=== PATIENT | female | born 1980 | race Caucasian/White ===

== ENCOUNTER → 2018-02-01 | Outpatient (CLI) | payer BC ==
[~2018-02-01] MED LIST: NS 100 ML IV 100 ML IV ONE
[2018-02-01 08:55] LABS: CREATININE 1.23 mg/dL (0.55-1.02)
--- NOTE | 2018-02-01 09:57 | CT ---
HISTORY: Right upper quadrant pain. Prior history of hysterectomy, cholecystectomy and bladder surger y. Study: CT abdomen and pelvis with IV and oral contrast Comparison: No priors Technique: Multiple axial images of the abdomen and pelvis were obtained from the lung bases to the pubic symphy sis during the administration of IV contrast. Small amount of oral contrast was apparently given als o. Coronal and sagittal images are reviewed. Dose reduction techniques utilized automatic exposure co ntrol. Findings: The visualized portions of the lung bases are unremarkable. The liver, spleen, pancreas, kidneys, an d adrenal glands are unremarkable in their CT appearance. The gallbladder and uterus are surgically a bsent.. No significant mesenteric lymphadenopathy or stranding can be observed. No free fluid or fr ee air is seen within the abdomen. No bowel wall thickening or bowel dilatation is present. The appe ndix is normal. The colon is unremarkable. Specifically, there is no diverticulosis noted within the sigmoid colon. The right ovary is normal. There is a 2.1 cm simple cyst of the left ovary. The urina ry bladder is grossly unremarkable. The bony structures are grossly intact. IMPRESSION: Surgically absent gallbladder and uterus. 2.1 cm simple cyst of the left ovary. Right ovary is normal. No evidence of renal mass, stone or hydronephrosis is seen. Normal appendix. Reported By:
== END | disposition home or self-care (01) | DRG 392 ==
LOC: RAD 08:16
PROVIDERS: ATTEND Nurse Practitioner Family
DX: R10.11 Right upper quadrant pain (principal); R10.31 Right lower quadrant pain; R11.0 Nausea; N83.292 Other ovarian cyst, left side
CPT/HCPCS: 36415; 74177; 82565; 84520; A4222

== ENCOUNTER 2022-10-05 16:51 | Observation (INO) ==
--- NOTE | 2022-10-05 17:10 | ED.ABDFE ---
HPI Time Seen Time Seen by Provider: 10/05/22 17:09 PCP Primary Care Physician: FAHAD LOZADA Complaint Doctors Chief Complaint Comments: 42 y/o female presents for evaluation. Developed abdominal pain this am. Located LUQ, does not radiate. Crampy, sharp. Nothing makes it better, nothing makes it worse. Denies URI symptoms, bowel or bladder issues. Associated with nausea, but no vomiting. No report of fever, chills, diaphoresis, rash. Has had distant abdominal surgeries - turner, hyst, C- sec. Chief Complaint:: PT STATES THAT SHE WOKE UP THIS MORNING WITH SEVERE LUQ PAIN DESCRIBED CONSTANT SPAMS/CRAMPING. PAIN IS ASSOCIATED WITH NAUSEA BUT DENIES VOMITING. PT HAS HAD NORMAL BM TODAY. Self Treatment fo Chief Complaint: PT TOOK TYLENOL LAST AROUND NOON WITH NO IMPROVEMENT OF SYMPTOM COVID-19 Coronavirus risk:travel/contact w/high risk person: No Has patient experienced Coronavirus symptoms: No Reviewed Nurses Notes Review: Yes Source History Provided: Patient Mode of arrival Mode of Arrival: Ambulatory Timing Onset of Chief Complaint: 10/05/22 PMH PMH Past Medical History: Yes Past Medical History: Anxiety, Diabetes, Dyslipidemia, GERD and Hypertension Past Medical History Comment: IBS, INSOMIA, TONGUE CANCER Past Surgical History: Yes Surgical History: , Cholecystectomy and Hysterectomy Past Surgical History Comment: TONGUE SURGERY, BLADDER TACT Family History History of Family Medical Conditions: Yes Family Medical History: Cancer Social History Does patient currently use any type of tobacco product: No Have you used tobacco products in the last 12 months: No Type of Tobacco Use: None Does any household member use tobacco: No Alcohol Use: None Do you use any recreational Drugs:: No Lives With: Family Lives Where: Home Travel Risk Coronavirus risk:travel/contact w/high risk person: No Has patient experienced Coronavirus symptoms: No Infectious screening In the last 2 months have you had wt loss of >10#?: NO Have you had fever, night sweats or hemotysis?: No Have you traveled outside the country in the last 6 months?: No Isolation: Standard ROS Review of Systems Constitutional: No Symptoms Reported Eyes: No Symptoms Reported ENTM: No Symptoms Reported Respiratoy: No Symptoms Reported Cardiovascular: No Symptoms Reported Gastrointestinal/Abdominal: See HPI Genitourinary: No Symptoms Reported Neurological: No Symptoms Reported Musculoskeletal: No Symptoms Reported Integumentary: No Symptoms Reported Hematologic/Lymphatic: No Symptoms Reported Psychiatric: No Symptoms Reported All Other Systems: Reviewed and Negative PE Vital Signs Vitals: Temperature 97.6 F Pulse Rate 77 Respiratory Rate 17 Blood Pressure 115/55 O2 Sat by Pulse Oximetry 100 General General Appearance: Alert and In No Apparent Distress Eyes Eye exam: PERRL and EOMI ENT ENT Exam: Mucous Membranes Moist Neck Neck Exam: Normal Inspection and Full ROM Respiratory Respiratory Exam: Normal Lung Sounds Bilat; negative Accessory Muscle Use or Respiratory Distress Cardiovascular Cardiovascular Exam: Regular Rate, Normal Rhythm and Normal Heart Sounds Abdominal Exam Abdominal Exam: Normal Inspection, Normal Bowel Sounds, Soft and Tenderness (LUQ, mild guarding, no rebound. ) Back Back Exam: Normal Inspection; negative (R) CVA Tenderness or (L) CVA Tenderness Extremeties Extremities Exam: Normal Inspection and Full ROM; negative Edema Neurologic Neurological Exam: Alert, Oriented X3 and CN II-XII Intact; negative Motor Sensory Deficit Skin Skin Exam: Warm and Dry COURSE Treatment Treatment: + LUQ abdominal pain since this am. W/u initiated. Given IV fluids, IV toradol/zofran. 1907 - blood work acceptable. U/A with degree of a UTI. CT abd/pelvis - + partial SBO, loops in the LUQ. Pt informed of results. Recommend admission. Discussed with Dr Beckford, covering for admissions, accepts the admission. Will consult with Dr Watkins. [facility] Labs Reviewed Laboratory Results Reviewed?: Yes Result Diagrams: 10/05/22 17:26 10/05/22 17: Laboratory: WBC 7.7 X10^3/uL (3.6-10.0) 10/05/22 17: RBC 4.12 X10^6/uL (3.5-5.4) 10/05/22 17: Hgb 11.9 g/dL (12.0-16.0) L 10/05/22 17: Hct 35.9 % (36.0-47.0) L 10/05/22 17: MCV 87.0 fL (80.0-100.0) 10/05/22 17: MCH 28.8 pg (27.0-34.0) 10/05/22 17: MCHC 33.1 g/dL (33.0-35.0) 10/05/22 17: RDW 13.8 % (11.6-16.5) 10/05/22 17: Plt Count 324 X10^3/uL (150.0-450.0) 10/05/22 17: MPV 9.0 fL (7.4-11.0) 10/05/22 17: Neut % (Auto) 82.2 % (42.0-75.0) H 10/05/22 17: Lymph % (Auto) 13.2 % (21.0-51.0) L 10/05/22 17: [place] % (Auto) 3.4 % (0.0-13.0) 10/05/22 17: Eos % (Auto) 0.4 % (0.9-2.9) L 10/05/22: Baso % (Auto) 0.8 % (0.2-1.0) 10/05/22 17: Neut # (Auto) 6.3 x10^3/uL (2.2-4.8) H 10/05/22 17: Lymph # (Auto) 1.0 X10^3/uL (1.3-2.9) L 10/05/22 17: [place] # (Auto) 0.3 x10^3/uL (0.3-0.8) 10/05/22 17: Eos # (Auto) 0.0 x10^3/uL (0.0-0.2) 10/05/22: Baso # (Auto) 0.1 X10^3/uL (0.0-0.1) 10/05/22 17: Absolute Nucleated RBC 0.0 /100WBC 10/05/22 17: Sodium 137 mmol/L (136-145) 10/05/22 17: Corrected Sodium 138 mmol/L (136-145) 10/05/22 17: Potassium 3.9 mmol/L (3.5-5.1) 10/05/22 17: Chloride 103 mmol/L (98-107) 10/05/22 17: Carbon Dioxide 28.4 mmol/L (21-32) 10/05/22 17: BUN 11 mg/dL (7-18) 10/05/22 17: Creatinine 1.27 mg/dL (0.55-1.02) H 10/05/22 17:26 Est GFR (MDRD) Af Amer 59 (>60) 10/05/22 17:26 Est GFR (MDRD) Non-Af 49 (>60) L 10/05/22 17: Glucose 131 mg/dL (65-99) H 10/05/22 17:26 Calcium 8.8 mg/dL (8.5-10.1) 10/05/22 17: Corrected Calcium 9.4 mg/dL (8.5-10.1) 10/05/22 17: Total Bilirubin 0.20 mg/dL (0.2-1.0) 10/05/22 17: AST 41 Units/L (15-37) H 10/05/22 17: ALT 51 Units/L (12-78) 10/05/22 17: Alkaline Phosphatase 36 Units/L (46-116) L 10/05/22 17:26 Total Protein 6.5 g/dL (6.4-8.2) 10/05/22 17: Albumin 3.3 g/dL (3.4-5.0) L 10/05/22 17:26 Globulin 3.2 g/dL (2.5-4.5) 10/05/22 17: Albumin/Globulin Ratio 1.0 Ratio (1.1-2.1) L 10/05/22 17: Lipase 105 Units/L (73-393) 10/05/22 17:26 Specimen Type Clean catch urine 10/05/22 17:36 Urine Color Yellow (YELLOW) 10/05/22 17:36 Urine Appearance Cloudy (CLEAR) 10/05/22 17:36 Urine pH 5.0 (5.0 - 8.0) 10/05/22 17:36 Ur Specific [place] 1.020 (1.000-1.030) 10/05/22 17:36 Urine Protein 2+ (NEGATIVE) 10/05/22 17:36 Urine Glucose (UA) Negative (NEGATIVE) 10/05/22 17:36 Urine Ketones 1+ (NEGATIVE) 10/05/22 17: Urine Blood 1+ (NEGATIVE) 10/05/22 17:36 Urine Nitrite Positive (NEGATIVE) 10/05/22 17:36 Urine Bilirubin Negative (NEGATIVE) 10/05/22 17:36 Urine Urobilinogen Normal (NORMAL) 10/05/22 17:36 Ur Leukocyte Esterase 3+ (NEGATIVE) 10/05/22 17:36 Urine RBC 3-5 /HPF (0-3) A 10/05/22 17:36 Urine WBC 10-20 /HPF (0-5) A 10/05/22 17:36 Ur Squamous Epith Cells Many /HPF (NEGATIVE) 10/05/22 17:36 Urine Bacteria 3+ /HPF (NEGATIVE) 10/05/22 17:36 Ur Culture Indicated? No/not indicated 10/05/22 17:36 XRAY XRAY Interpreted by: Radiologist X-ray Results: + dilated loops small bowel in LUQ, c/w partial SBO Opioid Opioid Risk Tool Age (Srini box if 16-45): Yes History of Preadolescent Sexual Abuse: No Total: 1 Total Score Risk Category: Low Risk Copyright: Tj LINK predicting aberrant behaviors Discharge Plan Diagnosis Discharge Problem: Partial small bowel obstruction Discharge Plan Patient Disposition: 09 ADMITTED INPATIENT Condition: Stable Prescriptions: No Action atorvastatin 20 mg tablet 20 mg PO QDAY bisoprolol-hydrochlorothiazide 5-6.25 mg tablet 1 tab PO QDAY amitriptyline 50 mg tablet 150 mg PO HS pantoprazole 40 mg tablet,delayed release (DR/EC) 40 mg PO BID ergocalciferol (vitamin D2) 1,250 mcg (50,000 unit) capsule 50,000 unit PO QWEEK pioglitazone 30 mg tablet 30 mg PO QDAY losartan 100 mg tablet 100 mg PO QDAY metformin 500 mg tablet extended release 24 hr 500 mg PO BID dicyclomine 10 mg capsule 10 mg PO TID escitalopram oxalate 10 mg tablet 10 mg PO QDAY fenofibrate 160 mg tablet 160 mg PO QDAY Health Concerns: Post Hospitalization: new medications and changes needed to prevent readmission or further decline. Pt educated and given instructions on all concerns. Plan of Treatment: Continue with present treatment and follow up plan. Pt is to keep follow up appointment as instructed and take medications as ordered. Orders to Discharge Patient Discharge Orders: Transfer (Routine); Ordered 10/05/22 Ordered By: Luis Syed Follow ups/Referrals Follow ups/Referrals: RUDI MURRAY [Primary Care Provider] - 3 days
[2022-10-05] MEDS ORDERED: NS 1,000 ML IV 1,000 ML IV ONE (17:18)
[2022-10-05] MEDS ORDERED: ZOFRAN INJ 4 MG VIAL IVP ONE (17:19)
[2022-10-05] MEDS ORDERED: TORADOL 30 MG VIAL IVP ONE (17:19)
[2022-10-05] MEDS ORDERED: ZOFRAN INJ 4 MG VIAL ONE (17:35)
[2022-10-05] MEDS ORDERED: TORADOL 30 MG VIAL ONE (17:35)
[2022-10-05] MEDS ORDERED: NS 1,000 ML IV 1,000 ML ONE ×2 (17:36→19:22)
[2022-10-05 17:41] LABS: BASOPHILS # (AUTO) 0.1 X10^3/uL (0.0-0.1); BASOPHILS % (AUTO) 0.8 % (0.2-1.0); EOSINOPHILS % (AUTO) 0.4 % (0.9-2.9); HEMATOCRIT 35.9 % (36.0-47.0); HEMOGLOBIN 11.9 g/dL (12.0-16.0); LYMPHOCYTES % (AUTO) 13.2 % (21.0-51.0); MEAN CORPUSCULAR HEMOGLOBIN 28.8 pg (27.0-34.0); MEAN CORPUSCULAR HGB CONC 33.1 g/dL (33.0-35.0); MONOCYTES # (AUTO) 0.3 x10^3/uL (0.3-0.8); MONOCYTES % (AUTO) 3.4 % (0.0-13.0); NEUTROPHILS # (AUTO) 6.3 x10^3/uL (2.2-4.8); NEUTROPHILS % (AUTO) 82.2 % (42.0-75.0); RED BLOOD COUNT 4.12 X10^6/uL (3.5-5.4); RED CELL DISTRIBUTION WIDTH 13.8 % (11.6-16.5); WHITE BLOOD COUNT 7.7 X10^3/uL (3.6-10.0)
[2022-10-05 17:51] LABS: ALBUMIN 3.3 g/dL (3.4-5.0); CALCIUM 8.8 mg/dL (8.5-10.1); CARBON DIOXIDE 28.4 mmol/L (21-32); COR CA(FOR HYPOALB) 9.4 mg/dL (8.5-10.1); CREATININE 1.27 mg/dL (0.55-1.02); TOTAL PROTEIN 6.5 g/dL (6.4-8.2)
[2022-10-05 17:59] LABS: BILIRUBIN,URINE NEGATIVE (NEGATIVE); BLOOD/HEMOGLOBIN,URINE 1+ (NEGATIVE); GLUCOSE, URINE NEGATIVE (NEGATIVE); KETONES,URINE 1+ (NEGATIVE); LEUKOCYTE ESTERASE ,URINE 3+ (NEGATIVE); NITRITES,URINE POSITIVE (NEGATIVE); PROTEIN,URINE 2+ (NEGATIVE); UROBILINOGEN,URINE NORMAL (NORMAL)
[2022-10-05 18:11] LABS: APPEARANCE,URINE CLOUDY (CLEAR); COLOR,URINE YELLOW (YELLOW)
[2022-10-05 18:12] LABS: BACTERIA,URINE 3+ /HPF (NEGATIVE); SQUAMOUS EPITHELIAL CELL,UR MANY /HPF (NEGATIVE)
--- NOTE | 2022-10-05 18:42 | CT ---
HISTORY:Left upper quadrant pain, nauseaStudy: CT abdomen and pelvis with contrastComparison:NoneTechnique: Multiple axial images of the abdomen and pelvis were obtained with IV contrast. Oral contrast was not administered. Dose reduction techniques including Automated Exposure Control (AEC) and adjustment of mA and kV were utilized.FINDINGS:The lung bases are clear. There is probable fatty infiltration of the liver. The spleen, pancreas and adrenal glands are unremarkable. Gallbladder is removed.No renal calculi or obstructive uropathy.No free intraperitoneal air. There are mildly dilated small bowel loops in the left upper quadrant with air-fluid levels, measuring up to 3.5 centimeters in diameter. There is mild fecalization of small bowel contents suggesting stasis. Distal small bowel loops are decompressed and there is gas in the colon. Overall findings suggest partial small-bowel obstruction versus ileus. Continued follow-up is recommended. The appendix is normal. No ascites or abscess.The soft tissues and osseous structures are intact . The vascular structures are unremarkable . No pathologically enlarged lymph nodes are identified.Uterus is absent. Urinary bladder not well distended.IMPRESSION ABDOMEN/PELVIS:Mildly dilated small bowel loops with air-fluid levels in the left upper quadrant with relative transition to decompressed small bowel loops. Findings suggest partial small-bowel obstruction versus ileus. Continued radiographic follow-up is recommended.Surgical changes as described.Electronically signed by: VIVIANA GATICA (Oct 05, 2022 18:40:30)
[2022-10-05] MEDS ORDERED: MORPHINE SULFATE INJ 4 MG IVP ONE (19:09)
[2022-10-05] MEDS ORDERED: ROCEPHIN VIAL 1 GRAM 1 G in NS 100 ML IV 100 ML IV SCH (19:10)
[2022-10-05] MEDS ORDERED: MORPHINE SULFATE INJ 4 MG ONE (19:17)
[2022-10-05] MEDS ORDERED: ROCEPHIN VIAL 1 GRAM ONE (19:17)
[2022-10-05] MEDS ORDERED: NS 1,000 ML IV 1,000 ML IV SCH (20:00)
[2022-10-05] MEDS ORDERED: MORPHINE SULFATE INJ 4 MG IVP PRN (20:46)
[2022-10-05] MEDS ORDERED: D5 1/2 NS 1,000 ML 1,000 ML IV SCH (20:46)
[2022-10-05] MEDS ORDERED: ZOFRAN INJ 4 MG VIAL IVP PRN (20:46)
[2022-10-05] MEDS ORDERED: ELAVIL PO SCH (21:00)
[2022-10-05 21:21] VITALS: BMI 40.3
[2022-10-05] MEDS: NS 1,000 ML IV 1,000 ML IV SCH (22:34)
[2022-10-06] MEDS: NS 1,000 ML IV 1,000 ML IV SCH ×2 (04:05→04:06)
[2022-10-06 06:17] LABS: BASOPHILS % (AUTO) 0.5 % (0.2-1.0); EOSINOPHILS # (AUTO) 0.1 x10^3/uL (0.0-0.2); EOSINOPHILS % (AUTO) 0.6 % (0.9-2.9); HEMATOCRIT 34.4 % (36.0-47.0); HEMOGLOBIN 11.3 g/dL (12.0-16.0); LYMPHOCYTES # (AUTO) 1.3 X10^3/uL (1.3-2.9); LYMPHOCYTES % (AUTO) 14.9 % (21.0-51.0); MEAN CORPUSCULAR HEMOGLOBIN 28.9 pg (27.0-34.0); MEAN CORPUSCULAR HGB CONC 32.8 g/dL (33.0-35.0); MEAN CORPUSCULAR VOLUME 87.9 fL (80.0-100.0); MEAN PLATELET VOLUME 9.1 fL (7.4-11.0); MONOCYTES # (AUTO) 0.5 x10^3/uL (0.3-0.8); MONOCYTES % (AUTO) 5.4 % (0.0-13.0); NEUTROPHILS % (AUTO) 78.6 % (42.0-75.0); RED BLOOD COUNT 3.91 X10^6/uL (3.5-5.4); WHITE BLOOD COUNT 8.9 X10^3/uL (3.6-10.0)
[2022-10-06 06:24] LABS: ALANINE AMINOTRANSFERASE 39 Units/L (12-78); ALBUMIN 2.6 g/dL (3.4-5.0); ALKALINE PHOSPHATASE 31 Units/L (46-116); ASPARTATE AMINO TRANSFERASE 28 Units/L (15-37); BLOOD UREA NITROGEN 11 mg/dL (7-18); CHLORIDE 108 mmol/L (98-107); COR CA(FOR HYPOALB) 9.1 mg/dL (8.5-10.1); COR NA(FOR HYPERGLY) 141 mmol/L (136-145); CREATININE 1.08 mg/dL (0.55-1.02); SODIUM 141 mmol/L (136-145); TOTAL PROTEIN 5.4 g/dL (6.4-8.2); eGFR NON BLACK RACES 59 (>60)
[2022-10-06] MEDS ORDERED: MAGNESIUM SULFATE 1 GRAM/100 mL PREMIX 1 G/100 ML BAG IV PRN (06:32)
[2022-10-06] MEDS ORDERED: K-DUR TAB 20 MEQ PO PRN (06:32)
[2022-10-06] MEDS ORDERED: KLOR-CON PO PRN (06:32)
[2022-10-06] MEDS ORDERED: POTASSIUM CHL 40 MEQ/NS 0.45% 500 ML IV PRN (06:32)
[2022-10-06] MEDS ORDERED: MICRO K EXTEN CAP 10 MEQ PO PRN (06:32)
[2022-10-06] MEDS ORDERED: K-RIDER 10 MEQ/NS 100 ML 10 MEQ/100 ML BAG IV PRN (06:32)
[2022-10-06] MEDS ORDERED: POTASSIUM CHLORIDE LIQ 20 MEQ UDC PO PRN (06:32)
[2022-10-06] MEDS ORDERED: POTASSIUM CHL 60 MEQ/NS 0.45% 500 ML IV PRN (06:32)
[2022-10-06] MEDS ORDERED: ZIAC 5/6.25 MG PO SCH (09:00)
[2022-10-06] MEDS ORDERED: COZAAR PO SCH (09:00)
[2022-10-06 12:15] VITALS: BP 101/53
--- NOTE | 2022-10-06 12:38 | RAD ---
HISTORYSBOSTUDYKUB x-ray one viewCOMPARISONCT 10/05/2022FINDINGSMild air is seen in the colon with little if any small bowel air. Prior cholecystectomy. No suspicious calcifications.IMPRESSIONNo bowel dilation is seen.Electronically signed by: Tim Ghosh (Oct 06, 2022 12:37:56)
--- NOTE | 2022-10-06 13:27 | DR.SSS ---
SHORT STAY SUMMARY Admission Date Date of Admission: 10/05/22 Discharge Date Discharge Date: 10/06/22 Admission Diagnoses Admission Diagnoses: Abdominal pain Nausea Discharge Diagnoses Discharge Diagnoses: Abdominal pain Nausea Chief Complaint Chief Complaint: Abdominal pain Nausea Past Medical History Past Medical History: Anxiety, Diabetes, Dyslipidemia, GERD and Hypertension Past Surgical History Surgical History: , Cholecystectomy and Hysterectomy Allergies Allergies Allergy/AdvReac Type Severity Reaction Status Date / Time No Known Drug Allergies Allergy Unknown Verified 03/19/20 16:11 metoclopramide [From Reglan] Allergy Verified 04/17/19 07:44 Medications Home Medications: metoclopramide [From Reglan] Allergy (Verified 04/17/19 07:44) CONTINUE taking the following medications amitriptyline 50 mg tablet 150 mg PO HS 10/05/22 [History] atorvastatin 20 mg tablet 20 mg PO QDAY 10/05/22 [History] bisoprolol 5 mg-hydrochlorothiazide 6.25 mg tablet 1 tab PO QDAY 10/05/22 [History] dicyclomine 10 mg capsule 10 mg PO TID 10/05/22 [History] ergocalciferol (vitamin D2) 1,250 mcg (50,000 unit) capsule 50,000 unit PO QWEEK 10/05/22 [History] escitalopram oxalate 10 mg tablet 10 mg PO QDAY 10/05/22 [History] fenofibrate 160 mg tablet 160 mg PO QDAY 10/05/22 [History] losartan 100 mg tablet 100 mg PO QDAY 10/05/22 [History] metformin 500 mg tablet,extended release 24 hr 500 mg PO BID 10/05/22 [History] pantoprazole 40 mg tablet,delayed release 40 mg PO BID 10/05/22 [History] pioglitazone 30 mg tablet 30 mg PO QDAY 10/05/22 [History] zolpidem 10 mg tablet 1 tab PO QPM PRN 10/05/22 [History] Family History Family Medical History: Cancer Social History Does patient currently use any type of tobacco product: No Have you used tobacco products in the last 12 months: No Type of Tobacco Use: None Does any household member use tobacco: No Alcohol Use: None Drug Use: None Physical Exam Vital Signs: Last Vital Signs Temp 97.9 F 10/06/22 12:00 Pulse 74 10/06/22 12:00 Resp 18 10/06/22 12:00 BP 101/53 10/06/22 12:00 Pulse Ox 94 L 10/06/22 12:00 O2 Del Method Room Air 10/06/22 12:00 Labs Labs: Laboratory Last Values WBC 8.9 X10^3/uL (3.6-10.0) 10/06/22 05:44 RBC 3.91 X10^6/uL (3.5-5.4) 10/06/22 05:44 Hgb 11.3 g/dL (12.0-16.0) L 10/06/22 05:44 Hct 34.4 % (36.0-47.0) L 10/06/22 05:44 MCV 87.9 fL (80.0-100.0) 10/06/22 05:44 MCH 28.9 pg (27.0-34.0) 10/06/22 05:44 MCHC 32.8 g/dL (33.0-35.0) L 10/06/22 05:44 RDW 14.0 % (11.6-16.5) 10/06/22 05:44 Plt Count 292 X10^3/uL (150.0-450.0) 10/06/22 05:44 MPV 9.1 fL (7.4-11.0) 10/06/22 05:44 Neut % (Auto) 78.6 % (42.0-75.0) H 10/06/22 05:44 Lymph % (Auto) 14.9 % (21.0-51.0) L 10/06/22 05:44 [place] % (Auto) 5.4 % (0.0-13.0) 10/06/22 05:44 Eos % (Auto) 0.6 % (0.9-2.9) L 10/06/22 05:44 Baso % (Auto) 0.5 % (0.2-1.0) 10/06/22 05:44 Neut # (Auto) 7.0 x10^3/uL (2.2-4.8) H 10/06/22 05:44 Lymph # (Auto) 1.3 X10^3/uL (1.3-2.9) 10/06/22 05:44 [place] # (Auto) 0.5 x10^3/uL (0.3-0.8) 10/06/22 05:44 Eos # (Auto) 0.1 x10^3/uL (0.0-0.2) 10/06/22 05:44 Baso # (Auto) 0.0 X10^3/uL (0.0-0.1) 10/06/22 05:44 Absolute Nucleated RBC 0.1 /100WBC 10/06/22 05:44 Sodium 141 mmol/L (136-145) 10/06/22 05:44 Corrected Sodium 141 mmol/L (136-145) 10/06/22 05:44 Potassium 3.7 mmol/L (3.5-5.1) 10/06/22 12:14 Chloride 108 mmol/L (98-107) H 10/06/22 05:44 Carbon Dioxide 27.0 mmol/L (21-32) 10/06/22 05:44 BUN 11 mg/dL (7-18) 10/06/22 05:44 Creatinine 1.08 mg/dL (0.55-1.02) H 10/06/22 05:44 Est GFR (MDRD) Af Amer > 60 (>60) 10/06/22 05:44 Est GFR (MDRD) Non-Af 59 (>60) 10/06/22 05:44 Glucose 115 mg/dL (65-99) H 10/06/22 05:44 POC Glucose (mg/dL) 149 mg/dL (65-99) H 10/06/22 12:23 Calcium 8.0 mg/dL (8.5-10.1) L 10/06/22 05:44 Corrected Calcium 9.1 mg/dL (8.5-10.1) 10/06/22 05:44 Total Bilirubin 0.20 mg/dL (0.2-1.0) 10/06/22 05:44 AST 28 Units/L (15-37) 10/06/22 05:44 ALT 39 Units/L (12-78) 10/06/22 05:44 Alkaline Phosphatase 31 Units/L (46-116) L 10/06/22 05:44 Total Protein 5.4 g/dL (6.4-8.2) L 10/06/22 05:44 Albumin 2.6 g/dL (3.4-5.0) L 10/06/22 05:44 Globulin 2.8 g/dL (2.5-4.5) 10/06/22 05:44 Albumin/Globulin Ratio 0.9 Ratio (1.1-2.1) L 10/06/22 05:44 Lipase 105 Units/L (73-393) 10/05/22 17:26 Specimen Type Clean catch urine 10/05/22 17:36 Urine Color Yellow (YELLOW) 10/05/22 17:36 Urine Appearance Cloudy (CLEAR) 10/05/22 17:36 Urine pH 5.0 (5.0 - 8.0) 10/05/22 17:36 Ur Specific [place] 1.020 (1.000-1.030) 10/05/22 17:36 Urine Protein 2+ (NEGATIVE) 10/05/22 17:36 Urine Glucose (UA) Negative (NEGATIVE) 10/05/22 17:36 Urine Ketones 1+ (NEGATIVE) 10/05/22 17:36 Urine Blood 1+ (NEGATIVE) 10/05/22 17:36 Urine Nitrite Positive (NEGATIVE) 10/05/22 17:36 Urine Bilirubin Negative (NEGATIVE) 10/05/22 17:36 Urine Urobilinogen Normal (NORMAL) 10/05/22 17:36 Ur Leukocyte Esterase 3+ (NEGATIVE) 10/05/22 17:36 Urine RBC 3-5 /HPF (0-3) A 10/05/22 17:36 Urine WBC 10-20 /HPF (0-5) A 10/05/22 17:36 Ur Squamous Epith Cells Many /HPF (NEGATIVE) 10/05/22 17:36 Urine Bacteria 3+ /HPF (NEGATIVE) 10/05/22 17:36 Ur Culture Indicated? Yes/culture set up 10/05/22 17:36 Discharge Medications Discharge Medications: Home Medication List amitriptyline 50 mg tablet 150 mg PO HS 10/05/22 [History] atorvastatin 20 mg tablet 20 mg PO QDAY 10/05/22 [History] bisoprolol 5 mg-hydrochlorothiazide 6.25 mg tablet 1 tab PO QDAY 10/05/22 [History] dicyclomine 10 mg capsule 10 mg PO TID 10/05/22 [History] ergocalciferol (vitamin D2) 1,250 mcg (50,000 unit) capsule 50,000 unit PO QWEEK 10/05/22 [History] escitalopram oxalate 10 mg tablet 10 mg PO QDAY 10/05/22 [History] fenofibrate 160 mg tablet 160 mg PO QDAY 10/05/22 [History] losartan 100 mg tablet 100 mg PO QDAY 10/05/22 [History] metformin 500 mg tablet,extended release 24 hr 500 mg PO BID 10/05/22 [History] pantoprazole 40 mg tablet,delayed release 40 mg PO BID 10/05/22 [History] pioglitazone 30 mg tablet 30 mg PO QDAY 10/05/22 [History] zolpidem 10 mg tablet 1 tab PO QPM PRN 10/05/22 [History] Prescriptions: Discharge Plan Discharge Plan Patient Disposition: HOME, SELF-CARE Condition: Stable Health Concerns: Post Hospitalization: new medications and changes needed to prevent readmission or further decline. Pt educated and given instructions on all concerns. Care Plan Goals: Problem: Pain/Alteration in Comfort Goal: Improve/ Resolve Pain; Achieve Pain Tolerance Instructions: Take pain medications as prescribed. Contact your primary care provider if your pain is unrelieved or worsens. Follow up with primary care provider as directed. Plan of Treatment: Continue with present treatment and follow up plan. Pt is to keep follow up appointment as instructed and take medications as ordered. Assessment: No acute distress noted at discharge. Prescriptions: New ciprofloxacin HCl [Cipro] 500 mg Tablet 500 mg PO Q12H Qty: 20 0RF No Action atorvastatin 20 mg tablet 20 mg PO QDAY bisoprolol-hydrochlorothiazide 5-6.25 mg tablet 1 tab PO QDAY amitriptyline 50 mg tablet 150 mg PO HS pantoprazole 40 mg tablet,delayed release (DR/EC) 40 mg PO BID ergocalciferol (vitamin D2) 1,250 mcg (50,000 unit) capsule 50,000 unit PO QWEEK pioglitazone 30 mg tablet 30 mg PO QDAY losartan 100 mg tablet 100 mg PO QDAY metformin 500 mg tablet extended release 24 hr 500 mg PO BID dicyclomine 10 mg capsule 10 mg PO TID escitalopram oxalate 10 mg tablet 10 mg PO QDAY fenofibrate 160 mg tablet 160 mg PO QDAY zolpidem 10 mg tablet 1 tab PO QPM PRN Orders to Discharge Patient Discharge Orders: Discharge (Routine); Ordered 10/06/22 Ordered By: MAEVE KLINE Follow ups/Referrals Follow ups/Referrals: MAEVE KLINE [STAFF PHYSICIAN] - 10/19/22 8:30 am RUDI MURRAY [Primary Care Provider] - 3 days (Call on Sunday to make one week follow up appointment.) Instructions Instructions: Clear Liquid Diet, Adult, [id number], Soft-Food Eating Plan, Abdominal Pain, Adult, [id number] Stand Alone Forms: Excuse From Work or School
[2022-10-06] MEDS ORDERED: ROCEPHIN VIAL 1 GRAM 1 G in NS 100 ML IV 100 ML IV SCH ×4 (21:00)
== END 2022-10-06 13:34 | disposition home or self-care (01) ==
LOC: ER 16:51 → MED/SURG 16:51
PROVIDERS: ADMIT Family Medicine; ATTEND Family Medicine
DX: K56.51 Intestinal adhesions [bands], with partial obstruction; B96.1 Klebsiella pneumoniae [K. pneumoniae] as the cause of diseases classified elsewhere; F32.89 Other specified depressive episodes; R10.84 Generalized abdominal pain; E11.65 Type 2 diabetes mellitus with hyperglycemia; F41.8 Other specified anxiety disorders